=== PATIENT | male | born 1990 | race Caucasian/White ===

== ENCOUNTER 2016-12-23 21:58 | Emergency (ER) | payer SELFPAY ==
[2016-12-23 22:04] VITALS: BP 122/75; PULSE 70; RESP 15; TEMP 98.8; O2SAT 97
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
[2016-12-23] MEDS ORDERED: LET GEL TOPICAL 1 EA SYR TP ONE ×2 (22:57→23:03)
[2016-12-23] MEDS ORDERED: CEPHALEXIN 500MG PREPACK#4 BTL TAKEHOME ONE (23:44)
== END 2016-12-24 00:26 | disposition home or self-care (01) ==
PROC: 0HQCXZZ Repair Left Upper Arm Skin, External Approach (ICD-10-PCS; principal; 2016-12-23)
DX: S51.012A Laceration without foreign body of left elbow, initial encounter (principal); S50.811A Abrasion of right forearm, initial encounter; S80.212A Abrasion, left knee, initial encounter; S50.812A Abrasion of left forearm, initial encounter; S60.511A Abrasion of right hand, initial encounter; V18.0XXA Pedal cycle driver injured in noncollision transport accident in nontraffic accident, initial encounter; Y93.55 Activity, bike riding